=== PATIENT | female | born 1965 | race Caucasian/White ===

== ENCOUNTER 2025-08-15 10:28 | Emergency (ER) | payer OTHER, SELFPAY ==
[2025-08-15] VITALS (10 sets, daily range): BP systolic 134–165; BP diastolic 80–96; PULSE 71–83; RESP 14–24; TEMP 36.6; O2SAT 96–100; BMI 25.0
--- NOTE | 2025-08-15 11:06 | DI.RAD.S_ITS ---
PROCEDURE: XR CHEST 1V INDICATIONS: Chest Pain TECHNIQUE: One view of the chest was acquired. COMPARISON: None. FINDINGS: Surgical changes and devices: None. Lungs and pleura: Lungs are clear. No pleural effusions or pneumothorax. Mediastinum: Mediastinal contours appear normal. Heart size is normal. Bones and chest wall: No suspicious bony lesions. Overlying soft tissues appear unremarkable. IMPRESSION: No acute cardiopulmonary abnormalities or focal consolidation. Dictated by: Jimmy Orlando M.D. on 08/15/2025 at 12:04 Approved by: Jimmy Orlando M.D. on 08/15/2025 at 12:05
[2025-08-15 11:12] LABS: Add Manual Diff / Slide Review NO; Hematocrit 40.2 % (36-46); Hemoglobin 13.9 g/dL (12.0-16.0); Lymphocytes Absolute Auto 2200 /uL (1100-4500); Mean Corpuscular HGB Conc 34.5 % (30-36); Mean Corpuscular Hemoglobin 31.0 PG (26-34); Mean Corpuscular Volume 89.7 fL (80-100); Platelet Count 247 X10^3/uL (150-400)
[2025-08-15 11:13] LABS: INR 1.0 (0.9-1.3); Prothrombin Time 11.3 SECONDS (9.4-12.5)
[2025-08-15 11:15] LABS: PTT Partial Thromboplastin Tim 30 SECONDS (25.1-36.5)
[2025-08-15] MEDS: ASPIRIN 81 MG CHEW TAB 324 MG PO (11:19)
[2025-08-15 11:21] LABS: Alanine Aminotransferase 46 IU/L (<35); Albumin 4.7 g/dL (3.5-5.0); Albumin Globulin Ratio 1.5 (1.0-2.8); Alkaline Phosphatase 65 U/L (38-126); Blood Urea Nitrogen 14 mg/dL (7-17); Calcium 9.6 mg/dL (8.4-10.2); Carbon Dioxide 24 mmol/L (22-32); Chloride 104 mmol/L (98-107); Creatine Kinase 46 U/L (30-135); Estimated Glomerular Filt Rate > 60 mL/min (>60); Globulin 3.2 g/dL (1.7-4.1); Glucose 96 mg/dL (70-99); HEMOLYSIS < 15 (0-50); Lipase 98 U/L (23-300); Magnesium 1.8 mg/dL (1.6-2.3); Potassium 3.7 mmol/L (3.4-5.1); Sodium 138 mmol/L (137-145); Total Protein 7.9 g/dL (6.3-8.2)
[2025-08-15 11:32] LABS: NT-proBNP (BNP-Adult 18+) 36 pg/mL (<125); Troponin I < 0.012 ng/mL (0.01-0.034)
--- NOTE | 2025-08-15 11:47 | EKG_ITS ---
[address] [address] Test Date: 2025-08-15 Pat Name: Yuliya Oscar Department: [facility] Room: Gender: Female Utility Teller: YOCASTA : 1965 Requested By: Order Number: [id number] Reading MD: Hayder Richardson MD Measurements Intervals [place]ing Rate: 70 P: 49 RI: 202 QRS: 38 QRSD: 68 T: 27 QT: 380 QTc: 410 Interpretive Statements Normal sinus rhythm Low voltage QRS Electronically Signed On 08-28-2025 8:57:13 PST by Hayder Richardson MD
--- NOTE | 2025-08-15 12:23 | ED.CHESTPAIN ---
HPI - Chest Pain General Chief Complaint: Chest Pain Stated Complaint: Having heart issues, Light headed, hot flashes Time Seen by Provider: 08/15/25 11:29 Source: patient and family Mode of arrival: Ambulatory Limitations: no limitations History of Present Illness HPI narrative: This is a 60-year-old female here with chest pressure and other complaints. Onset was approximately an hour prior to arrival. States that she was walking around the store had the onset of ?hot flashes? feeling flushed, nausea dyspnea and lightheadedness. This persisted for approximately an hour. It got better about the time she arrives here. She has not had similar symptoms in the past. She is on Zepbound, got an injection yesterday has not had similar symptoms like this in the past. Has not had vomiting has not had any change in some baseline left lower quadrant abdominal pain that she has chronically. Bowel functions have been intact. No urinary symptoms. In terms of cardiac risk factors, she reports her father has a history of coronary disease, she has a history of hypertension hyperlipidemia no history of diabetes in a nonsmoker. She did recently start hormone replacement therapy. Related Data Allergies Allergy/AdvReac Type Severity Reaction Status Date / Time No Known Drug Allergies Allergy Verified 08/15/25 11:00 Patient History Social History Smoking Status: Never smoker Smoking Status: Never smoker Alcohol type: wine Exam Initial Vital Signs Initial Vital Signs: Vital Signs Pulse Rate 82 08/15/25 10:47 Pulse Oximetry 97 08/15/25 10:47 vital signs are reviewed Const General: cooperative and No acute distress HENMT Head: normocephalic and atraumatic Face and sinus: face symmetric Mouth: moist mucous membranes Eyes Pupils: PERRL EOM: EOM intact bilaterally Neck Neck: normal visual inspection, supple and No JVD Chest Chest: normal inspection of the chest Resp Effort & Inspection: normal respiratory effort and able to speak in complete sentences Auscultation: clear to auscultation bilaterally Cardio Rate: regular rate Rhythm: regular rhythm Heart Sounds: no murmurs Other: Normal heart rate GI Inspection: normal to inspection Palpation: soft Auscultation: normal bowel sounds Back/Spine/Pelvis Back: normal to inspection Skin General: no rashes or lesions noted and warm Neuro General: patient alert, patient oriented x3 and moves all extremities Speech: speech normal Extrem General: full ROM Psych Appearance: grossly normal Course Orders Ordered: ED Orders 10/27/25 10:50 Complete Blood Count AUTO DIFF Stat Comprehensive Metabolic Panel Stat Lipase Stat Magnesium Stat NT-proBNP (BNP-Adult 18+) Stat PTT Partial Thromboplastin Cleve Stat Prothrombin Time INR Stat Troponin & CK Cardiac Panel Stat 08/15/25 11:06 XR chest 1V Stat EKG-12 Lead Stat 08/15/25 12:52 Troponin I Stat Discontinued Medications Aspirin (Aspirin 81 Mg Chew Tab) 324 mg PO NOW ONE Stop: 08/15/25 11:07 Last Admin: 08/15/25 11:19 Dose: 324 mg Documented By: YOCASTA Vital Signs Vital signs: Vital Signs - 8 hr 08/15/25 10:47 08/15/25 11:00 08/15/25 11:00 Temperature 98 F Pulse Rate 82 83 76 Respiratory Rate 18 Blood Pressure 165/96 H Pulse Oximetry 97 100 96 Oxygen Delivery Method Room Air 08/15/25 11:30 08/15/25 12:00 08/15/25 12:30 Temperature Pulse Rate 76 71 71 Respiratory Rate 21 24 22 Blood Pressure Pulse Oximetry 97 96 98 Oxygen Delivery Method 08/15/25 13:00 08/15/25 13:30 08/15/25 14:01 Temperature Pulse Rate 71 71 72 Respiratory Rate 14 20 18 Blood Pressure 165/96 H Pulse Oximetry 99 98 96 Oxygen Delivery Method 08/15/25 14:02 08/15/25 14:04 08/15/25 14:04 Temperature Pulse Rate 74 74 Respiratory Rate Blood Pressure 134/80 Pulse Oximetry 97 99 Oxygen Delivery Method MDM - Chest Pain Lab Data Lab results narrative: Troponins normal x2, lipase normal CBC with diff and CMP reassuring 08/15/25 10:50 08/15/25 10:50 Labs: Lab Results 08/15/25 08/15/25 Range/Units 10:50 12:52 WBC 7.4 (4.5-11.0) X10^3/uL RBC 4.48 (4.0-5.2) X10^6/uL Hgb 13.9 (12.0-16.0) g/dL Hct 40.2 (36-46) % MCV 89.7 (80-100) fL MCH 31.0 (26-34) PG MCHC 34.5 (30-36) % RDW 13.8 (11.6-14.8) % Plt Count 247 (150-400) X10^3/uL Neut % (Auto) 60.1 (50-75) % Lymph % (Auto) 29.3 (25-40) % [place] % (Auto) 7.9 (3-14) % Eos % (Auto) 1.8 L (2-4) % Baso % (Auto) 0.9 (0-2) % Neut # (Auto) 4400 (3070-1401) /uL Lymph # (Auto) 2200 (6885-8292) /uL [place] # (Auto) 600 (0-900) /uL Eos # (Auto) 100 (0-450) /uL Baso # (Auto) 100 (0-100) /uL PT 11.3 (9.4-12.5) SECONDS INR 1.0 (0.9-1.3) APTT 30 (25.1-36.5) SECONDS Sodium 138 (137-145) mmol/L Potassium 3.7 (3.4-5.1) mmol/L Chloride 104 (98-107) mmol/L Carbon Dioxide 24 (22-32) mmol/L BUN 14 (7-17) mg/dL Creatinine 0.62 (0.52-1.04) mg/dL Estimated GFR > 60 (>60) mL/min BUN/Creatinine Ratio 22.6 H (6-22) Glucose 96 (70-99) mg/dL Calcium 9.6 (8.4-10.2) mg/dL Magnesium 1.8 (1.6-2.3) mg/dL Total Bilirubin 0.8 (0.2-1.3) mg/dL AST 48 H (14-36) IU/L ALT 46 H (<35) IU/L Alkaline Phosphatase 65 (38-126) U/L Total Creatine Kinase 46 (30-135) U/L Troponin I < 0.012 < 0.012 (0.01-0.034) ng/mL NT-Pro-B Natriuret Pep 36 (<125) pg/mL Total Protein 7.9 (6.3-8.2) g/dL Albumin 4.7 (3.5-5.0) g/dL Globulin 3.2 (1.7-4.1) g/dL Albumin/Globulin Ratio 1.5 (1.0-2.8) Lipase 98 (23-300) U/L Imaging Data Chest x-ray: My Impression: Independently reviewed chest x-ray, no acute finding Radiologist's Impression: Radiology report, no acute abnormality ECG Data Attestation: I personally reviewed and interpreted this ECG as follows: (Normal sinus rhythm at 70. No acute ST segment changes normal axis, no previous infarction normal intervals.) MDM Narrative Medical decision making narrative: Heart score: Slightly suspicious history, normal EKG, +1 for age of 62 +2 for risk factors total of 3. 60-year-old female presenting with an episode of chest pain that was associated with nausea and lightheadedness and ?hot flashes. While she does have a couple of cardiac risk factors, there were no ischemic EKG changes and troponins were normal x2. No evidence of infection metabolic disturbance, I considered but do not suspect pulmonary embolism. Patient was discharged home I recommended she follow up with her primary care provider. Discharge Plan Departure Patient Disposition: Home Clinical Impression: Lightheadedness Chest pain Qualifiers: Chest pain type: unspecified Qualified Code(s): R07.9 - Chest pain, unspecified Activity Restrictions/Additional Instructions: Emergency department evaluation today is reassuring. I think it is safe for you to go home. I do not recommend any changes to your medications. If you are having recurrent symptoms I recommended follow up soon with her primary care provider. I would also suggest that you discuss today's symptoms with the provider prescribing your weight loss medications. Stand Alone Forms: Patient Portal/API
[2025-08-15 13:28] LABS: Troponin I < 0.012 ng/mL (0.01-0.034)
== END 2025-08-15 14:35 | disposition home or self-care (01) ==
PROVIDERS: Emergency Provider Emergency Medicine
DX: R42 Dizziness and giddiness (principal); R07.9 Chest pain, unspecified
CPT/HCPCS: 36415; 71045; 80053; 82550; 83690; 83735; 83880; 84484; 85025; 85610; 85730; 93005; 93010; 99284